=== PATIENT | male | born 1980 | race Two or more races ===

== ENCOUNTER 2023-07-22 15:24 | Inpatient (IN) | payer OTHER ==
[2023-07-22 16:32] VITALS: BMI 22.4
[2023-07-22] MEDS ORDERED: NALOXONE HCL (KLOXXADO) 8 MG SPRAY NS PRN (23:30)
[2023-07-22] MEDS ORDERED: IBUPROFEN 600 MG TABLET (FP) PO PRN (23:30)
[2023-07-22] MEDS ORDERED: ONDANSETRON *ODT* 4 MG TABLET SL PRN (23:30)
[2023-07-22] MEDS ORDERED: MAGNESIUM HYDROX 2400MG/30ML ORAL SUSPENSION 30 ML CUP PO PRN (23:30)
[2023-07-22] MEDS ORDERED: BISMUTH SUBSALICYLATE 524 MG/30 ML PO PRN (23:30)
[2023-07-22] MEDS ORDERED: LOPERAMIDE HCL 2 MG CAPSULE PO PRN (23:30)
[2023-07-22] MEDS ORDERED: BENZOCAINE/MENTHOL (CHLORASEPTIC ) LOZENGE MM PRN (23:30)
[2023-07-22] MEDS ORDERED: NICOTINE POLACRILEX 2 MG GUM BUC PRN (23:30)
[2023-07-22] MEDS ORDERED: ACETAMINOPHEN 325 MG TABLET (FP) PO PRN (23:30)
[2023-07-22] MEDS ORDERED: MAG HYDROX/AL HYDROX/SIMETH 30 ML UNIT-DOSE CUP PO PRN (23:30)
[2023-07-22] MEDS ORDERED: IBUPROFEN 400 MG TABLET (FP) PO PRN (23:30)
[2023-07-22] MEDS ORDERED: NALOXONE HCL 0.4 MG/ML VIAL IM PRN (23:30)
[2023-07-22] MEDS ORDERED: hydrOXYzine PAMOATE 25 MG CAPSULE (FP) PO PRN (23:30)
[2023-07-22] MEDS ORDERED: POLYETHYLENE GLYCOL (HEALTHYLAX) 3350 17 GM PACKET PO PRN (23:30)
[2023-07-22] MEDS ORDERED: BENZONATATE 200 MG CAPSULE PO PRN (23:30)
[2023-07-23] MEDS ORDERED: methaDONE HCL 10 MG TABLET (FOR DETOX USE ONLY) ONE (00:06)
[2023-07-23] MEDS: methaDONE HCL 10 MG TABLET (FOR DETOX USE ONLY) PO ONE (00:13)
[2023-07-23] MEDS: PRENATAL VITAMINS W/ FOLIC ACID TABLET (FP) PO SCH (10:20)
[2023-07-23] MEDS: NICOTINE 14 MG/24 HOURS TOPICAL PATCH TD SCH (10:20)
[2023-07-23] MEDS: METHOCARBAMOL 500 MG TABLET PO PRN (11:19)
[2023-07-23 11:34] LABS: HEMATOCRIT 38.5 % (35.4-49); HEMOGLOBIN 12.8 GM/dL (11.7-16.9); MCH 27.1 pg (25.7-33.7); MCHC 33.3 g/dl (32.0-35.9); MEAN CELL VOLUME 81.5 fl (80-96); PLATELET COUNT 424 10^3/uL (134-434); RBC 4.73 M/mm3 (4.00-5.60); RDW 14.9 % (11.9-15.9); WHITE BLOOD COUNT 7.2 K/mm3 (4.0-10.0)
[2023-07-23 12:07] LABS: CHLORIDE 107 mmol/L (98-107); POTASSIUM 4.2 mmol/L (3.5-5.1); SODIUM 140 mmol/L (136-145)
[2023-07-23 12:13] LABS: CALCIUM 8.8 mg/dL (8.5-10.1)
[2023-07-23 12:14] LABS: ALBUMIN 2.8 g/dl (3.4-5.0); ANION GAP 5 mmol/L (4-13); BLOOD UREA NITROGEN 10.3 mg/dL (7-18); CO2 29 mmol/L (21-32); GLUCOSE,RANDOM 101 mg/dL (74-106)
[2023-07-23 12:17] LABS: CREATININE 0.5 mg/dL (0.55-1.3); SGOT/AST 12 U/L (15-37); SGPT/ALT 14 U/L (13-61)
[2023-07-23 12:18] LABS: BILIRUBIN,TOTAL 0.4 mg/dL (0.2-1)
[2023-07-23 12:19] LABS: ALK PHOS 74 U/L (45-117)
[2023-07-23] MEDS: DICYCLOMINE HCL 10 MG CAPSULE PO PRN (17:30)
[2023-07-23] MEDS: guaiFENesin 600 MG TABLET.ER (FP) PO PRN (17:30)
[2023-07-23] MEDS: THIAMINE HCL 100 MG TABLET (FP) PO SCH (21:22)
[2023-07-23] MEDS: risperiDONE 1 MG TABLET PO SCH (21:22)
[2023-07-23] MEDS: MELATONIN 5 MG TABLETS PO SCH (21:22)
[2023-07-24] MEDS: methaDONE HCL 10 MG TABLET (FOR DETOX USE ONLY) PO ONE (10:10)
[2023-07-24 11:58] LABS: EPI CELLS 5 /uL (0-25.1); HYALINE CASTS 1 /uL (0-3.1); PH,URINE 7.5 (5.0-8.0); URINE APPEARANCE CLEAR; URINE BACTERIA 3870 /uL (0-1359); URINE BILIRUBIN NEGATIVE (NEGATIVE); URINE COLOR YELLOW; URINE GLUCOSE (UA) NEGATIVE (NEGATIVE); URINE KETONE NEGATIVE (NEGATIVE); URINE LEUK ESTERASE TRACE (NEGATIVE); URINE NITRITE NEGATIVE (NEGATIVE); URINE PROTEIN NEGATIVE (NEGATIVE); URINE RBC 5 /uL (0-23.9); URINE WBC 71 /uL (0-25.8)
[2023-07-24] MEDS: diazePAM 5 MG TABLET PO PRN (17:28)
[2023-07-24] MEDS: cloNIDine HCL 0.1 MG TABLET PO PRN (17:29)
[2023-07-25] MEDS: guaiFENesin 200 MG/10 ML 10 ML UNIT-DOSE CUPS PO PRN (22:57)
[2023-07-26] MEDS: methaDONE HCL 10 MG TABLET (FOR DETOX USE ONLY) PO ONE (09:52)
[2023-07-26 16:38] VITALS: RESP 18
[2023-07-26 21:12] VITALS: BP 139/76; PULSE 76; TEMP 98
[2023-07-26] MEDS: OXYMETAZOLINE 0.05% NASAL SOLUTION 15 ML BOTTLE NS PRN (21:47)
== END 2023-07-27 00:57 | disposition left against medical advice (07) | DRG 770 ==
LOC: YASAS 15:24 → Y3N 07-23 03:57
PROVIDERS: ADMIT Allergy & Immunology; ATTEND Allergy & Immunology
PROC: HZ2ZZZZ Detoxification Services for Substance Abuse Treatment (ICD-10-PCS; principal; 2023-07-23)
DX: F11.23 Opioid dependence with withdrawal (principal); F14.20 Cocaine dependence, uncomplicated; F12.20 Cannabis dependence, uncomplicated; F17.210 Nicotine dependence, cigarettes, uncomplicated; F20.9 Schizophrenia, unspecified; G51.0 Bell's palsy; J10.1 Influenza due to other identified influenza virus with other respiratory manifestations; Z62.810 Personal history of physical and sexual abuse in childhood; Z86.59 Personal history of other mental and behavioral disorders; Z59.00 Homelessness unspecified; Z28.310 Unvaccinated for COVID-19
CPT/HCPCS: 0241U-QW; 36415; 80053; 80305; 80307; 81003; 82962; 84153; 85027; 86780; 87086; 87635; 87811; 93005; 93010

== ENCOUNTER 2023-09-11 21:05 | Inpatient (IN) | payer OTHER ==
[2023-09-11 22:12] VITALS: BMI 22.6
[2023-09-11] MEDS ORDERED: ACETAMINOPHEN 325 MG TABLET (FP) PO PRN (22:36)
[2023-09-11] MEDS ORDERED: IBUPROFEN 400 MG TABLET (FP) PO PRN (22:36)
[2023-09-11] MEDS ORDERED: POLYETHYLENE GLYCOL (HEALTHYLAX) 3350 17 GM PACKET PO PRN (22:36)
[2023-09-11] MEDS ORDERED: NALOXONE HCL (KLOXXADO) 8 MG SPRAY NS PRN (22:36)
[2023-09-11] MEDS ORDERED: DICYCLOMINE HCL 10 MG CAPSULE PO PRN (22:36)
[2023-09-11] MEDS ORDERED: MAGNESIUM HYDROX 2400MG/30ML ORAL SUSPENSION 30 ML CUP PO PRN (22:36)
[2023-09-11] MEDS ORDERED: NICOTINE POLACRILEX 2 MG LOZENGE BC PRN (22:36)
[2023-09-11] MEDS ORDERED: LOPERAMIDE HCL 2 MG CAPSULE PO PRN (22:36)
[2023-09-11] MEDS ORDERED: P-EPHED 60MG/TRIPROLIDI 2.5MG TABLET PO PRN (22:36)
[2023-09-11] MEDS ORDERED: BENZOCAINE/MENTHOL (CHLORASEPTIC ) LOZENGE MM PRN (22:36)
[2023-09-11] MEDS ORDERED: ONDANSETRON *ODT* 4 MG TABLET SL PRN (22:36)
[2023-09-11] MEDS ORDERED: NICOTINE POLACRILEX 2 MG GUM BUC PRN (22:36)
[2023-09-11] MEDS ORDERED: MAG HYDROX/AL HYDROX/SIMETH 30 ML UNIT-DOSE CUP PO PRN (22:36)
[2023-09-11] MEDS ORDERED: guaiFENesin 600 MG TABLET.ER (FP) PO PRN (22:36)
[2023-09-11] MEDS ORDERED: BENZONATATE 200 MG CAPSULE PO PRN (22:36)
[2023-09-11] MEDS ORDERED: NALOXONE HCL 0.4 MG/ML VIAL IM PRN (22:36)
[2023-09-11] MEDS: hydrOXYzine PAMOATE 25 MG CAPSULE (FP) PO PRN (23:29)
[2023-09-11] MEDS: ALBUTEROL SO4 HFA INHALER IH SCH (23:30)
[2023-09-11] MEDS: CEPHALEXIN MONOHYDRATE 500 MG CAPSULE (UD) PO SCH (23:41)
[2023-09-12] MEDS ORDERED: diazePAM 5 MG TABLET PO PRN (09:29)
[2023-09-12] MEDS: PRENATAL VITAMINS W/ FOLIC ACID TABLET (FP) PO SCH (10:32)
[2023-09-12] MEDS: NICOTINE 7 MG/24 HOURS TOPICAL PATCH TD SCH (10:40)
[2023-09-12] MEDS: FLU VACCINE (FLULAVAL) PF 60 MCG/0.5 ML SYRINGE 2023-2024 IM ONE (12:00)
[2023-09-12] MEDS: PNEUMOC 20-VAL CONJ-DIP CRM/PF 0.5 ML SYRINGE IM ONE (12:02)
[2023-09-12] MEDS: THIAMINE 100 MG TABLET PO SCH (22:51)
[2023-09-12] MEDS: MELATONIN 5 MG TABLETS PO SCH (22:51)
[2023-09-13] MEDS: METHOCARBAMOL 500 MG TABLET PO PRN (01:42)
[2023-09-13] MEDS: BISMUTH SUBSALICYLATE 524 MG/30 ML PO PRN (01:43)
[2023-09-13] MEDS: cloNIDine HCL 0.1 MG TABLET PO PRN (06:42)
[2023-09-13] MEDS: IBUPROFEN 600 MG TABLET (FP) PO PRN (06:42)
[2023-09-13] MEDS: methaDONE HCL 10 MG TABLET (FOR DETOX USE ONLY) PO ONE (10:07)
[2023-09-13 11:51] LABS: POTASSIUM 3.9 mmol/L (3.5-5.1)
[2023-09-13 11:52] LABS: HEMATOCRIT 30.6 % (35.4-49); HEMOGLOBIN 10.1 GM/dL (11.7-16.9); MCH 27.4 pg (25.7-33.7); MCHC 33.2 g/dl (32.0-35.9); MEAN CELL VOLUME 82.7 fl (80-96); MEAN PLT VOLUME 8.3 fl (7.5-11.1); PLATELET COUNT 359 10^3/uL (134-434); RDW 16.2 % (11.9-15.9); WHITE BLOOD COUNT 7.6 K/mm3 (4.0-10.0)
[2023-09-13 11:53] LABS: ALBUMIN 2.3 g/dl (3.4-5.0); BLOOD UREA NITROGEN 8.5 mg/dL (7-18); CALCIUM 8.1 mg/dL (8.5-10.1)
[2023-09-13 11:56] LABS: CREATININE 0.7 mg/dL (0.55-1.3)
[2023-09-13 11:58] LABS: BILIRUBIN,TOTAL 0.5 mg/dL (0.2-1); TOT PROT 6.9 g/dl (6.4-8.2)
[2023-09-13 12:48] VITALS: BP 143/76; PULSE 66; RESP 18; TEMP 97.7
[2023-09-13] MEDS ORDERED: SILVER SULFADIAZINE 1% TOP CREAM 50 GM JAR TP SCH (22:00)
[2023-09-13] MEDS ORDERED: SULFAMETHOXAZOLE/TRIMETHOPRIM 800MG/160MG D.S. TABLET PO SCH (22:00)
[2023-09-15] MEDS ORDERED: methaDONE HCL 10 MG TABLET (FOR DETOX USE ONLY) PO ONE (10:00)
== END 2023-09-13 14:07 | disposition left against medical advice (07) | DRG 770 ==
LOC: YASAS 21:05 → Y6N 22:44
PROVIDERS: ADMIT Allergy & Immunology; ATTEND Surgery
PROC: HZ2ZZZZ Detoxification Services for Substance Abuse Treatment (ICD-10-PCS; principal; 2023-09-11)
DX: F11.23 Opioid dependence with withdrawal (principal); F14.20 Cocaine dependence, uncomplicated; F17.210 Nicotine dependence, cigarettes, uncomplicated; F41.9 Anxiety disorder, unspecified; J45.20 Mild intermittent asthma, uncomplicated; L03.114 Cellulitis of left upper limb; B95.62 Methicillin resistant Staphylococcus aureus infection as the cause of diseases classified elsewhere; Z28.310 Unvaccinated for COVID-19; Z28.9 Immunization not carried out for unspecified reason
CPT/HCPCS: 36415; 80053; 80305; 80307; 85027; 86780; 87070; 87186; 87205; 90677; 90686; 93005; 93010

== ENCOUNTER 2024-02-24 14:15 | Inpatient (IN) | payer OTHER ==
[2024-02-24 14:55] VITALS: BMI 21.8
[2024-02-24] MEDS ORDERED: ACETAMINOPHEN 325 MG TABLET (FP) PO PRN (17:00)
[2024-02-24] MEDS ORDERED: IBUPROFEN 400 MG TABLET (FP) PO PRN (17:00)
[2024-02-24] MEDS ORDERED: BENZONATATE 200 MG CAPSULE PO PRN (17:00)
[2024-02-24] MEDS ORDERED: NALOXONE (NYS OPIOID OVERDOSE PROGRAM) 4 MG/0.1 ML SPRAY NS PRN (17:00)
[2024-02-24] MEDS ORDERED: ONDANSETRON *ODT* 4 MG TABLET SL PRN (17:00)
[2024-02-24] MEDS ORDERED: MAG HYDROX/AL HYDROX/SIMETH 30 ML UNIT-DOSE CUP PO PRN (17:00)
[2024-02-24] MEDS ORDERED: LOPERAMIDE HCL 2 MG CAPSULE PO PRN (17:00)
[2024-02-24] MEDS ORDERED: BENZOCAINE/MENTHOL (CHLORASEPTIC ) LOZENGE MM PRN (17:00)
[2024-02-24] MEDS ORDERED: NALOXONE (NARCAN) HCL 4 MG/0.1 ML SPRAY NS PRN (17:00)
[2024-02-24] MEDS ORDERED: guaiFENesin 600 MG TABLET.ER (FP) PO PRN (17:00)
[2024-02-24] MEDS ORDERED: NICOTINE POLACRILEX 2 MG GUM BUC PRN (17:00)
[2024-02-24] MEDS ORDERED: DICYCLOMINE HCL 10 MG CAPSULE PO PRN (17:00)
[2024-02-24] MEDS ORDERED: MAGNESIUM HYDROX 2400MG/30ML ORAL SUSPENSION 30 ML CUP PO PRN (17:00)
[2024-02-24] MEDS ORDERED: POLYETHYLENE GLYCOL (HEALTHYLAX) 3350 17 GM PACKET PO PRN (17:00)
[2024-02-24] MEDS ORDERED: BISMUTH SUBSALICYLATE 524 MG/30 ML PO PRN (17:00)
[2024-02-24] MEDS: IBUPROFEN 600 MG TABLET (FP) PO PRN (20:53)
[2024-02-24] MEDS: METHOCARBAMOL 500 MG TABLET PO PRN (20:53)
[2024-02-24] MEDS: hydrOXYzine PAMOATE 25 MG CAPSULE (FP) PO PRN (20:53)
[2024-02-24] MEDS: MELATONIN 5 MG TABLETS PO SCH (21:26)
[2024-02-24] MEDS: THIAMINE 100 MG TABLET PO SCH (21:26)
[2024-02-25] MEDS ORDERED: ALBUTEROL SO4 HFA INHALER IH PRN (07:56)
[2024-02-25] MEDS ORDERED: cloNIDine HCL 0.1 MG TABLET PO PRN (08:38)
[2024-02-25] MEDS: NICOTINE 21 MG/24 HOURS TOPICAL PATCH TD SCH (09:23)
[2024-02-25] MEDS: PRENATAL VITAMINS W/ FOLIC ACID TABLET (FP) PO SCH (09:23)
[2024-02-25] MEDS: methaDONE HCL 10 MG TABLET (FOR DETOX USE ONLY) PO ONE (09:24)
[2024-02-25 21:24] VITALS: RESP 16
[2024-02-26 09:40] VITALS: BP 132/75; PULSE 64; TEMP 98.6
[2024-02-27] MEDS ORDERED: methaDONE HCL 10 MG TABLET (FOR DETOX USE ONLY) PO ONE (10:00)
[2024-02-29] MEDS ORDERED: methaDONE HCL 10 MG TABLET (FOR DETOX USE ONLY) PO ONE (10:00)
== END 2024-02-26 11:20 | disposition left against medical advice (07) | DRG 770 ==
LOC: YASAS 14:15 → Y3N 17:42
PROVIDERS: ADMIT Allergy & Immunology; ATTEND Surgery
PROC: HZ2ZZZZ Detoxification Services for Substance Abuse Treatment (ICD-10-PCS; principal; 2024-02-24)
DX: F11.23 Opioid dependence with withdrawal (principal); F14.20 Cocaine dependence, uncomplicated; F12.20 Cannabis dependence, uncomplicated; F17.210 Nicotine dependence, cigarettes, uncomplicated; F20.9 Schizophrenia, unspecified; F31.9 Bipolar disorder, unspecified; F41.1 Generalized anxiety disorder; J45.20 Mild intermittent asthma, uncomplicated; Z59.00 Homelessness unspecified
CPT/HCPCS: 80305; 80307